=== PATIENT | male | born 1965 | race Native Hawaiian/Other Pacific Islander ===

== ENCOUNTER 2016-09-17 08:30 | Outpatient (CLI) | payer BC ==
[~2016-09-17 08:30] MED LIST: CRESTOR20 MG PO; LOPRESSOR100 MG PO
== END 2016-09-17 19:17 | disposition home or self-care (01) ==
LOC: NM 08:30
DX: R07.89 Other chest pain (principal); I10 Essential (primary) hypertension; Z72.0 Tobacco use; E78.4 Other hyperlipidemia
CPT/HCPCS: 93306; A9500

== ENCOUNTER 2016-09-18 08:33 | Outpatient (CLI) | payer BC | END 2016-09-18 19:03 | disposition home or self-care (01) | LOC: US 08:33 | DX: R07.89 Other chest pain (principal); I10 Essential (primary) hypertension; Z72.0 Tobacco use; E78.4 Other hyperlipidemia ==

== ENCOUNTER 2018-10-15 11:18 | Outpatient (CLI) | payer OTHER ==
[2018-10-15 12:14] LABS: PLATELET COUNT 221 K/uL (142-355)
[2018-10-15 12:21] LABS: POTASSIUM 4.2 mmol/L (3.6-5.2)
== END 2018-10-15 23:11 | disposition home or self-care (01) ==
LOC: LABW 11:18
PROVIDERS: Internal Medicine
DX: Z01.818 Encounter for other preprocedural examination (principal)
CPT/HCPCS: 36415; 80053; 85027

== ENCOUNTER 2022-08-06 07:38 | Outpatient (CLI) | payer BC | END 2022-08-06 18:55 | disposition home or self-care (01) | LOC: RESP 07:38 | PROVIDERS: ATTEND Nurse Practitioner Adult Health | DX: I10 Essential (primary) hypertension (principal); R06.09 Other forms of dyspnea; R07.89 Other chest pain; R06.02 Shortness of breath ==

== ENCOUNTER 2022-08-27 08:25 | Outpatient (CLI) | payer BC ==
[~2022-08-27] VITALS: Ht 172.7 cm; Wt 117.5 kg
== END 2022-08-27 19:05 | disposition home or self-care (01) ==
LOC: NM 08:25
PROVIDERS: ATTEND Nurse Practitioner Adult Health
DX: I10 Essential (primary) hypertension (principal); R06.09 Other forms of dyspnea; R07.89 Other chest pain; R06.02 Shortness of breath
CPT/HCPCS: A9500; J2785

== ENCOUNTER 2022-12-13 09:33 | Outpatient (CLI) | payer BC | END 2022-12-13 19:03 | disposition home or self-care (01) | LOC: LABW 09:33 | PROVIDERS: ATTEND Nurse Practitioner | DX: E78.2 Mixed hyperlipidemia (principal); I25.10 Atherosclerotic heart disease of native coronary artery without angina pectoris | CPT/HCPCS: 36415; 80061; 80074 ==